=== PATIENT | male | born 1980 | race Caucasian/White ===

== ENCOUNTER 2020-08-15 11:47 | Emergency (ER) | payer OTHER ==
[~2020-08-15] VITALS: Ht 165.1 cm; Wt 86.2 kg
[2020-08-15 12:09] VITALS: Ht 165.1 cm; Wt 86.2 kg
[2020-08-15 13:34] VITALS: BP 135/81
== END 2020-08-15 13:34 | disposition other institution (70) ==
LOC: ED 11:47
DX: Z02.89 Encounter for other administrative examinations (principal)